=== PATIENT | male | born 1965 | race African-American/Black ===

== ENCOUNTER 2019-07-11 10:47 | Inpatient (IN) | payer MEDICAID ==
[2019-07-11] VITALS (24 sets, daily range): BP systolic 119–171; BP diastolic 36–84
[~2019-07-11] VITALS: Ht 182.9 cm; Wt 114.3 kg
[2019-07-11] MEDS ORDERED: ASPIRIN 325MG EC TABLET PO ONE (11:30)
[2019-07-11 11:48] LABS: BASOPHILS % 0.4 % (0.0-2.0); EOSINOPHILS % 0.5 % (0.0-5.0); HEMATOCRIT. 38.1 % (42.0-52.0); HEMOGLOBIN. 13.1 g/dL (14.0-18.0); LYMPHOCYTES % 18.8 % (20.0-50.0); MEAN CORPUSCULAR HEMOGLOBIN 27.1 pg (28.0-32.0); MEAN CORPUSCULAR VOLUME 78.9 fL (80.0-94.0); MEAN PLATELET VOLUME 7.5 fl (7.4-10.4); MONOCYTES % 7.6 % (2.0-8.0); NEUTROPHILS % 72.7 % (40.0-76.0); PLATELET 396 x1000/uL (130-400); RED BLOOD CELL COUNT 4.83 mill/uL (4.7-6.1); RED CELL DISTRIBUTION WIDTH 15.5 % (11.6-14.6)
[2019-07-11 12:28] LABS: CHLORIDE 105 mEq/L (98-107)
[2019-07-11 12:33] LABS: ETHANOL BLOOD < 10 mg/dL
[2019-07-11] MEDS ORDERED: ENOXAPARIN 80MG/0.8ML SYR SUBCUT ONE (13:15)
[2019-07-11 13:30] LABS: CLARITY URINE CLEAR (CLEAR); COLOR URINE YELLOW (YELLOW); KETONES URINE NEGATIVE (NEGATIVE); LEUKOCYTE ESTERASE URINE TRACE (NEGATIVE); NITRITE URINE NEGATIVE (NEGATIVE); OCCULT BLOOD URINE NEGATIVE (NEGATIVE); PROTEIN URINE NEGATIVE (NEGATIVE); SPECIFIC GRAVITY URINE 1.012 (1.005-1.030)
[2019-07-11 13:45] LABS: *AMPHETAMINES SCREEN URINE NEGATIVE (NEGATIVE); *BARBITURATES SCREEN URINE NEGATIVE (NEGATIVE); *BENZODIAZEPINES SCREEN URINE NEGATIVE (NEGATIVE); *COCAINE SCREEN URINE NEGATIVE (NEGATIVE); METHADONE URINE SCREEN NEGATIVE (NEGATIVE); OPIATES URINE SCREEN NEGATIVE (NEGATIVE)
[2019-07-11 13:46] LABS: CANNABINOID URINE SCREEN NEGATIVE (NEGATIVE); PHENCYCLIDINE URINE SCREEN NEGATIVE (NEGATIVE)
[2019-07-11] MEDS ORDERED: DIGO125T80 MT (18:13)
[2019-07-11] MEDS ORDERED: FURO-151 PO (18:13)
[2019-07-11] MEDS ORDERED: AMLO10TA80 PO (18:13)
[2019-07-11] MEDS ORDERED: ISOS20TA8 PO (18:13)
[2019-07-11] MEDS ORDERED: D-ME473S8 MT (18:13)
[2019-07-11] MEDS ORDERED: HYDR-4134 MT (18:13)
[2019-07-11] MEDS ORDERED: AMIO100T4 PO (18:13)
[2019-07-11] MEDS ORDERED: ATOR20TA65 PO (18:13)
[2019-07-11] MEDS ORDERED: COR3 PO (18:13)
[2019-07-11] MEDS: FAMOTIDINE 20MG TABLET PO SCH (20:17)
[2019-07-11] MEDS: AMLODIPINE 2.5MG TABLET PO SCH (20:17)
[2019-07-11] MEDS: ATORVASTATIN CALCIUM 20MG TABLET PO SCH (20:17)
[2019-07-11] MEDS ORDERED: POTASSIUM CHLORIDE 20MEQ/PACKET PO NR (21:55)
[2019-07-11] MEDS ORDERED: FLUTICASONE/VILANTEROL 200-25 BLST.W.DEV ORI SCH (22:45)
[2019-07-11] MEDS: PREDNISONE 20MG TABLET PO SCH (22:53)
[2019-07-12] VITALS (26 sets, daily range): BP systolic 120–158; BP diastolic 56–106
[2019-07-12] MEDS ORDERED: ALBUTEROL (0.083%) 2.5MG/3ML NEB HHN SCH
[2019-07-12] MEDS ORDERED: POTASSIUM CHLORIDE INJ 40 MEQ in DEXT 5% WATER 250 ML IV NR ×2
[2019-07-12] MEDS: IPRATROPIUM/ALBUTEROL 0.5-3(2.5)MG/3ML NEB HHN SCH ×4 (00:48→21:11)
[2019-07-12 05:53] LABS: BASOPHILS % 0.1 % (0.0-2.0); EOSINOPHILS % 0.3 % (0.0-5.0); HEMOGLOBIN. 12.3 g/dL (14.0-18.0); LYMPHOCYTES % 10.5 % (20.0-50.0); MEAN CORPUSCULAR HEMOGLOBIN 27.5 pg (28.0-32.0); MEAN CORPUSCULAR VOLUME 80.3 fL (80.0-94.0); MEAN PLATELET VOLUME 7.8 fl (7.4-10.4); NEUTROPHILS % 85.1 % (40.0-76.0); PLATELET 360 x1000/uL (130-400); RED BLOOD CELL COUNT 4.49 mill/uL (4.7-6.1); RED CELL DISTRIBUTION WIDTH 15.3 % (11.6-14.6)
[2019-07-12 06:06] LABS: CHLORIDE 106 mEq/L (98-107)
[2019-07-12] MEDS: BUDESONIDE 0.5MG/2ML NEB HHN SCH ×2 (08:48→21:11)
[2019-07-12] MEDS: CLOPIDOGREL 75MG TABLET PO SCH (09:12)
[2019-07-12] MEDS: CARVEDILOL 3.125 MG TABLET PO SCH ×2 (09:12→20:47)
[2019-07-12] MEDS: PREDNISONE 20MG TABLET PO SCH ×2 (09:12→18:15)
[2019-07-12] MEDS: AMLODIPINE 2.5MG TABLET PO SCH ×2 (09:12→20:47)
[2019-07-12 20:14] LABS: T4 FREE 1.21 ng/dL (0.76-1.46)
[2019-07-12 20:31] LABS: FOLIC ACID (FOLATE) SERUM 15.5 ng/mL (>5.38)
[2019-07-12] MEDS: FAMOTIDINE 20MG TABLET PO SCH (20:46)
[2019-07-12] MEDS: ATORVASTATIN CALCIUM 20MG TABLET PO SCH (20:47)
[2019-07-13] VITALS (25 sets, daily range): BP systolic 41–178; BP diastolic 15–106
[2019-07-13] MEDS: IPRATROPIUM/ALBUTEROL 0.5-3(2.5)MG/3ML NEB HHN SCH ×4 (01:17→20:31)
[2019-07-13 05:57] LABS: HEMATOCRIT. 35.1 % (42.0-52.0); MEAN CORPUSCULAR HEMOGLOBIN 27.1 pg (28.0-32.0); MEAN CORPUSCULAR VOLUME 79.4 fL (80.0-94.0); MEAN PLATELET VOLUME 7.6 fl (7.4-10.4); PLATELET 391 x1000/uL (130-400); RED BLOOD CELL COUNT 4.43 mill/uL (4.7-6.1); RED CELL DISTRIBUTION WIDTH 15.7 % (11.6-14.6)
[2019-07-13 06:12] LABS: CHLORIDE 105 mEq/L (98-107)
[2019-07-13 08:04] LABS: PLATELET ESTIMATE NORMAL
[2019-07-13] MEDS: BUDESONIDE 0.5MG/2ML NEB HHN SCH ×2 (08:38→20:31)
[2019-07-13] MEDS: CARVEDILOL 3.125 MG TABLET PO SCH ×2 (09:18→20:24)
[2019-07-13] MEDS: PREDNISONE 20MG TABLET PO SCH ×2 (09:18→17:38)
[2019-07-13] MEDS: CLOPIDOGREL 75MG TABLET PO SCH (09:18)
[2019-07-13] MEDS: AMLODIPINE 2.5MG TABLET PO SCH ×2 (09:19→20:24)
[2019-07-13] MEDS ORDERED: IOHEXOL-350 100 ML BOTTLE ONE (11:39)
[2019-07-13] MEDS ORDERED: REGADENOSON 0.4 MG/5 ML IV NR (12:30)
[2019-07-13] MEDS ORDERED: POTASSIUM CHLORIDE INJ 40 MEQ in DEXT 5% WATER 250 ML IV NR (20:00)
[2019-07-13] MEDS: ATORVASTATIN CALCIUM 20MG TABLET PO SCH (20:23)
[2019-07-13] MEDS: FAMOTIDINE 20MG TABLET PO SCH (20:23)
[2019-07-14] VITALS (22 sets, daily range): BP systolic 122–178; BP diastolic 58–119
[2019-07-14] MEDS: IPRATROPIUM/ALBUTEROL 0.5-3(2.5)MG/3ML NEB HHN SCH ×4 (01:56→19:53)
[2019-07-14 05:30] LABS: BASOPHILS % 0.1 % (0.0-2.0); HEMATOCRIT. 35.4 % (42.0-52.0); HEMOGLOBIN. 12.2 g/dL (14.0-18.0); LYMPHOCYTES % 11.3 % (20.0-50.0); MEAN CORPUSCULAR HEMOGLOBIN 27.4 pg (28.0-32.0); MEAN CORPUSCULAR VOLUME 79.6 fL (80.0-94.0); MEAN PLATELET VOLUME 7.3 fl (7.4-10.4); MONOCYTES % 6.1 % (2.0-8.0); NEUTROPHILS % 82.5 % (40.0-76.0); PLATELET 394 x1000/uL (130-400); RED BLOOD CELL COUNT 4.45 mill/uL (4.7-6.1); RED CELL DISTRIBUTION WIDTH 15.6 % (11.6-14.6)
[2019-07-14 05:51] LABS: CHLORIDE 107 mEq/L (98-107)
[2019-07-14] MEDS: BUDESONIDE 0.5MG/2ML NEB HHN SCH (08:15)
[2019-07-14] MEDS: PREDNISONE 20MG TABLET PO SCH ×2 (08:42→17:04)
[2019-07-14] MEDS: CLOPIDOGREL 75MG TABLET PO SCH (08:42)
[2019-07-14] MEDS: CARVEDILOL 3.125 MG TABLET PO SCH (08:42)
[2019-07-14] MEDS: AMLODIPINE 2.5MG TABLET PO SCH ×2 (08:42→21:24)
[2019-07-14] MEDS ORDERED: REGADENOSON 0.4 MG/5 ML IV ONE (09:35)
[2019-07-14] MEDS: NITROGLYCERIN OINT 1GM/INCH UDPKT TD SCH ×2 (14:13→21:23)
[2019-07-14] MEDS: ASPIRIN 81MG EC TABLET PO SCH (14:13)
[2019-07-14] MEDS: ATORVASTATIN CALCIUM 20MG TABLET PO SCH (21:23)
[2019-07-14] MEDS: FAMOTIDINE 20MG TABLET PO SCH (21:23)
[2019-07-14] MEDS: CARVEDILOL 6.25 MG TABLET PO SCH (21:23)
[2019-07-15] VITALS (50 sets, daily range): BP systolic 125–175; BP diastolic 36–108
[2019-07-15] MEDS: IPRATROPIUM/ALBUTEROL 0.5-3(2.5)MG/3ML NEB HHN SCH ×4 (01:59→20:01)
[2019-07-15] MEDS: NITROGLYCERIN OINT 1GM/INCH UDPKT TD SCH ×3 (05:23→20:57)
[2019-07-15 05:47] LABS: CHLORIDE 107 mEq/L (98-107)
[2019-07-15 05:48] LABS: BASOPHILS % 0.3 % (0.0-2.0); HEMATOCRIT. 33.9 % (42.0-52.0); HEMOGLOBIN. 11.9 g/dL (14.0-18.0); LYMPHOCYTES % 13.7 % (20.0-50.0); MEAN PLATELET VOLUME 7.4 fl (7.4-10.4); MONOCYTES % 6.6 % (2.0-8.0); NEUTROPHILS % 79.4 % (40.0-76.0); PLATELET 437 x1000/uL (130-400); RED BLOOD CELL COUNT 4.24 mill/uL (4.7-6.1); RED CELL DISTRIBUTION WIDTH 15.6 % (11.6-14.6)
[2019-07-15] MEDS: CARVEDILOL 6.25 MG TABLET PO SCH (08:07)
[2019-07-15] MEDS: AMLODIPINE 2.5MG TABLET PO SCH ×2 (08:07→20:57)
[2019-07-15] MEDS: CLOPIDOGREL 75MG TABLET PO SCH (08:07)
[2019-07-15] MEDS: PREDNISONE 20MG TABLET PO SCH ×2 (08:07→17:16)
[2019-07-15] MEDS: ASPIRIN 81MG EC TABLET PO SCH (08:08)
[2019-07-15] MEDS: BUDESONIDE 0.5MG/2ML NEB HHN SCH (08:18)
[2019-07-15 13:08] LABS: ANTI-CARDIOLIPIN AB IGA < 9 APL U/mL (0-11); ANTI-CARDIOLIPIN AB IGG < 9 GPL U/mL (0-14); ANTI-CARDIOLIPIN AB IGM 19 MPL U/mL (0-12); ANTI-THROMBIN ACTIVITY 131 % (75-135); LUPUS ANTICOAG INTERPRETATION Comment: (.); PROTEIN C FUNCTIONAL 170 % (73-180); PTT-LA 34.6 sec (0.0-51.9)
[2019-07-15] MEDS: CARVEDILOL 12.5MG TABLET PO SCH (20:57)
[2019-07-15] MEDS: FAMOTIDINE 20MG TABLET PO SCH (20:57)
[2019-07-15] MEDS: ATORVASTATIN CALCIUM 20MG TABLET PO SCH (20:57)
[2019-07-16] VITALS (44 sets, daily range): BP systolic 111–177; BP diastolic 49–114
[2019-07-16] MEDS: IPRATROPIUM/ALBUTEROL 0.5-3(2.5)MG/3ML NEB HHN SCH ×4 (01:50→20:41)
[2019-07-16 05:49] LABS: BASOPHILS % 0.2 % (0.0-2.0); HEMATOCRIT. 31.7 % (42.0-52.0); LYMPHOCYTES % 10.4 % (20.0-50.0); MEAN CORPUSCULAR HEMOGLOBIN 28.1 pg (28.0-32.0); MEAN CORPUSCULAR VOLUME 80.6 fL (80.0-94.0); MEAN PLATELET VOLUME 7.3 fl (7.4-10.4); MONOCYTES % 5.4 % (2.0-8.0); PLATELET 383 x1000/uL (130-400); RED BLOOD CELL COUNT 3.93 mill/uL (4.7-6.1); RED CELL DISTRIBUTION WIDTH 15.6 % (11.6-14.6)
[2019-07-16] MEDS: NITROGLYCERIN OINT 1GM/INCH UDPKT TD SCH ×3 (05:51→22:08)
[2019-07-16 05:55] LABS: CHLORIDE 107 mEq/L (98-107)
[2019-07-16] MEDS: BUDESONIDE 0.5MG/2ML NEB HHN SCH (08:45)
[2019-07-16] MEDS: CARVEDILOL 12.5MG TABLET PO SCH ×2 (08:57→21:29)
[2019-07-16] MEDS: PREDNISONE 20MG TABLET PO SCH ×2 (09:19→17:58)
[2019-07-16] MEDS: CLOPIDOGREL 75MG TABLET PO SCH (09:19)
[2019-07-16] MEDS: AMLODIPINE 2.5MG TABLET PO SCH ×2 (09:19→21:29)
[2019-07-16] MEDS: ASPIRIN 81MG EC TABLET PO SCH (09:20)
[2019-07-16] MEDS ORDERED: NITROGLYCERIN 50MCG/ML 10ML VIAL (CATH LAB) IV ONE (11:11)
[2019-07-16] MEDS ORDERED: NICARDIPINE 100MCG/ML 10ML VIAL (CATH LAB) IV ONE (11:11)
[2019-07-16] MEDS ORDERED: IODIXANOL 320MG/ML 100 ML BOTTLE IV ONE (13:42)
[2019-07-16] MEDS ORDERED: LIDOCAINE HCL 1% 20ML VIAL (Pyxis) INJ ONE (13:42)
[2019-07-16] MEDS ORDERED: FENTANYL CITRATE/PF 50MCG/ML 2ML VIAL ONE (13:43)
[2019-07-16] MEDS ORDERED: MIDAZOLAM HCL 2 MG/2 ML VIAL ONE (13:43)
[2019-07-16] MEDS ORDERED: HEPARIN SODIUM 1,000 UNIT/1ML VIAL IV ONE (13:44)
[2019-07-16] MEDS ORDERED: ATROPINE SULFATE 1MG/10ML SYR IV PRN (14:45)
[2019-07-16] MEDS ORDERED: ACETAMINOPHEN 325MG TABLET PO PRN (14:45)
[2019-07-16] MEDS ORDERED: ONDANSETRON HCL 4MG/2ML INJ IV PRN (14:45)
[2019-07-16] MEDS: ATORVASTATIN CALCIUM 20MG TABLET PO SCH (21:27)
[2019-07-16] MEDS: FAMOTIDINE 20MG TABLET PO SCH (21:28)
[2019-07-17] VITALS: BP 108/65
[2019-07-17] MEDS: IPRATROPIUM/ALBUTEROL 0.5-3(2.5)MG/3ML NEB HHN SCH ×3 (00:51→14:24)
[2019-07-17 04:00] VITALS: BP 123/77
[2019-07-17] MEDS: NITROGLYCERIN OINT 1GM/INCH UDPKT TD SCH ×2 (05:45→14:00)
[2019-07-17 07:18] LABS: BASOPHILS % 0.1 % (0.0-2.0); EOSINOPHILS % 0.1 % (0.0-5.0); HEMATOCRIT. 34.7 % (42.0-52.0); HEMOGLOBIN. 11.7 g/dL (14.0-18.0); LYMPHOCYTES % 12.4 % (20.0-50.0); MEAN CORPUSCULAR HEMOGLOBIN 27.1 pg (28.0-32.0); MEAN CORPUSCULAR VOLUME 80.2 fL (80.0-94.0); MEAN PLATELET VOLUME 7.4 fl (7.4-10.4); MONOCYTES % 5.6 % (2.0-8.0); NEUTROPHILS % 81.8 % (40.0-76.0); PLATELET 439 x1000/uL (130-400); RED BLOOD CELL COUNT 4.33 mill/uL (4.7-6.1); RED CELL DISTRIBUTION WIDTH 15.7 % (11.6-14.6)
[2019-07-17 07:51] LABS: CHLORIDE 107 mEq/L (98-107)
[2019-07-17 08:00] VITALS: BP 150/83
[2019-07-17] MEDS: CLOPIDOGREL 75MG TABLET PO SCH (08:54)
[2019-07-17] MEDS: ASPIRIN 81MG EC TABLET PO SCH (08:54)
[2019-07-17] MEDS: AMLODIPINE 2.5MG TABLET PO SCH (08:54)
[2019-07-17] MEDS: CARVEDILOL 12.5MG TABLET PO SCH (08:54)
[2019-07-17] MEDS: PREDNISONE 20MG TABLET PO SCH (08:54)
[2019-07-17 09:24] LABS: CHLORIDE 106 mEq/L (98-107)
[2019-07-17 11:27] LABS: PARTIAL THROMBOPLASTIN TIME 22.9 sec (23.4-31.0)
[2019-07-17 15:26] VITALS: BP 142/86
== END 2019-07-17 14:20 | disposition home or self-care (01) | DRG 190 ==
LOC: ER 10:47 → MICUNO 13:11 → EDBEDREQ 13:15 → EDBEDREQSVC 13:15 → ENRESERV 13:35 → 5WST 07-16 22:20
PROVIDERS: ADMIT Internal Medicine; ATTEND Internal Medicine
PROC: 4A023N7 Measurement of Cardiac Sampling and Pressure, Left Heart, Percutaneous Approach (ICD-10-PCS; principal; 2019-07-16)
PROC: B2111ZZ Fluoroscopy of Multiple Coronary Arteries using Low Osmolar Contrast (ICD-10-PCS; 2019-07-16)
PROC: B2151ZZ Fluoroscopy of Left Heart using Low Osmolar Contrast (ICD-10-PCS; 2019-07-16)
DX: I21.4 Non-ST elevation (NSTEMI) myocardial infarction (principal); I63.9 Cerebral infarction, unspecified; E46 Unspecified protein-calorie malnutrition; E66.01 Morbid (severe) obesity due to excess calories; D68.59 Other primary thrombophilia; E44.1 Mild protein-calorie malnutrition; G81.91 Hemiplegia, unspecified affecting right dominant side; E78.00 Pure hypercholesterolemia, unspecified; E78.5 Hyperlipidemia, unspecified; E87.6 Hypokalemia; F17.210 Nicotine dependence, cigarettes, uncomplicated; I49.3 Ventricular premature depolarization; J45.909 Unspecified asthma, uncomplicated; D64.9 Anemia, unspecified; F12.90 Cannabis use, unspecified, uncomplicated; I11.9 Hypertensive heart disease without heart failure; R26.89 Other abnormalities of gait and mobility; R47.01 Aphasia; Z79.02 Long term (current) use of antithrombotics/antiplatelets; Z79.899 Other long term (current) drug therapy; Z68.32 Body mass index [BMI] 32.0-32.9, adult; I25.2 Old myocardial infarction; Z79.82 Long term (current) use of aspirin; Z82.3 Family history of stroke; Z82.49 Family history of ischemic heart disease and other diseases of the circulatory system; Z88.2 Allergy status to sulfonamides; Z88.0 Allergy status to penicillin; Z88.6 Allergy status to analgesic agent
CPT/HCPCS: 36415; 70496; 70498; 70551; 71045; 78452; 80048; 80053; 80061; 80305; 80320; 81003; 81400; 81403; 81407; 81479; 82607; 82746; 82962; 83036; 83735; 84439; 84443; 84481; 84484; 85025; 85300; 85303; 85306; 85613; 85732; 86147; 92523; 92610; 93005; 93017; 93306; 93458; 93880; 93970; 94640; 97116; 97162; 97166; 99291; A9500; C1769; C1887; C1893; J1644; J1650; J2250; J2785; J3010; J3480; J3490; J7060; J7512; J7620; J7626; Q9967; G0480